=== PATIENT | female | born 1995 | race African-American/Black ===

== ENCOUNTER 2020-01-30 13:45 | Emergency (ER) | payer OTHER ==
[~2020-01-30] VITALS: Ht 160 cm; Wt 115.2 kg
[2020-01-30 14:00] VITALS: BP 140/85; TEMP 98.7
== END 2020-01-30 15:12 | disposition home or self-care (01) ==
LOC: ED 13:45
DX: L72.3 Sebaceous cyst (principal)
CPT/HCPCS: 99281

== ENCOUNTER 2022-12-09 23:12 | Emergency (ER) | payer OTHER ==
[~2022-12-09] VITALS: Ht 154.9 cm; Wt 112.9 kg
[2022-12-09 23:18] VITALS: TEMP 97.7
[2022-12-09 23:53] LABS: POTASSIUM 3.8 mmol/L (3.6-5.2)
[2022-12-10 01:23] LABS: PLATELET COUNT 322 K/uL (152-353)
[2022-12-10 01:45] VITALS: BP 118/73
== END 2022-12-10 01:45 | disposition home or self-care (01) ==
LOC: ED 23:12
PROVIDERS: Family Medicine
DX: R07.89 Other chest pain (principal); F41.9 Anxiety disorder, unspecified
CPT/HCPCS: 36415; 80053; 81000; 81025; 82550; 84484; 85027; 93005; 99283